=== PATIENT | male | born 1990 | race Caucasian/White ===

== ENCOUNTER 2025-10-31 08:50 | Outpatient (CLI) | payer BC, SELFPAY ==
--- NOTE | ~2025-10-31 | US_ITS ---
US scrotum doppler INDICATION: Right testicular lump TECHNIQUE: Testicular sonogram utilizing grayscale and color Doppler FINDINGS: The testes are normal in size and appearance. No focal lesions are seen. The right testes measures 4.9 x 2.5 x 4.1 cm centimeters, and the left testis measures 4.7 x 2.5 x 3.6 cm cm. There is normal vascular flow to both testes. The right and left epididymides appear normal. There is a small right hydrocele. No varicocele. IMPRESSION: 1. Small right hydrocele. Reviewed, dictated and finalized at location O. [employer] IMPRESSION: 1. Small right hydrocele.
== END 2025-10-31 08:51 | disposition home or self-care (01) ==
LOC: GOSHIMG 08:55
PROVIDERS: PCP Pediatrics; Visit Provider Physician Assistant
DX: N43.3 Hydrocele, unspecified (principal); N50.89 Other specified disorders of the male genital organs
CPT/HCPCS: 76870; 93976